=== PATIENT | female | born 1945 | race Caucasian/White ===

== ENCOUNTER 2016-07-23 17:01 | Emergency (ER) | payer MEDICARE ==
--- NOTE | 2016-08-07 14:38 | ER ---
ADMIT: 07/23/2016 RM/LOC: ER [facility] MR#: [id number] [address] [id number] [address] CEDENO [address] [id number] Emergency Room Report SEX: F AGE: 70 : 1945 DATE: 07/23/2016 ADDENDUM: This patient comes into the ER because she was in the street felt like she twisted her ankle and fell and hit her head. She has a large goose egg in the back of her head. She denies any loss of consciousness, but she is traveling from out of town and plans to be in a 500-mile trip tomorrow and wants to make sure she is okay. On physical exam, she has a contusion about the size of a lemon on the left side of her occipital area. No pain in her neck. No loss of consciousness. She does have a little bit of pain in her left hip, but she is able to walk without any difficulty and has no concerns about a fracture. CT scan was normal. DIAGNOSIS: Scalp contusion and left hip contusion. We will have her follow up with her primary. I did write a prescription for tramadol. Please see my T-sheet. DERIC Rdz / Darryl Kong MD / jd JOB #: [id number] CC: Darryl Kong MD, Attending Physician
== END 2016-07-23 18:40 | disposition home or self-care (01) ==
LOC: ER 17:01
DX: S00.03XA Contusion of scalp, initial encounter (principal); S70.02XA Contusion of left hip, initial encounter; I10 Essential (primary) hypertension; Z88.5 Allergy status to narcotic agent; X50.1XXA Overexertion from prolonged static or awkward postures, initial encounter; Y92.410 Unspecified street and highway as the place of occurrence of the external cause